=== PATIENT | female | born 1935 | race Hispanic/Latino ===

== ENCOUNTER 2016-12-28 10:28 | Outpatient (CLI) | payer MEDICARE ==
--- NOTE | 2016-12-28 12:57 | Mammography Report ---
Bilateral mammogram: Compared to 08/20/13. CAD study utilized. Findings: Predominance of adipose tissue bilaterally. Seroma left breast in the present study measures 1.35 cm compared to previous study measuring 2.1 cm. Increased scarring is identified adjacent to the seroma compared to previous study. There is new calcification noted adjacent to the seroma laterally seen on CC view and probably benign. Benign scattered calcifications are noted right breast. Impression: Seroma left breast appears smaller compared to previous study. Probably benign calcification adjacent to seroma. Six-month followup with left breast mammogram recommended. BI-RADS CATEGORY: 3 = Probably benign ACR BI-RADS MAMMOGRAPHIC CODES: 0 = Needs additional imaging evaluation; 1 = Negative; 2 = Benign; 3 = Probably benign; 4 = Suspicious; 5 = Malignant; 6 = Known biopsy-proven malignancy COMMENT: 1. Dense breast tissue, i.e., adenosis, fibrocystic changes, etc., may obscure an underlying neoplasm. 2. Approximately 10% of cancers are not detected with mammography. 3. A negative mammography report should not delay biopsy if a clinically suspicious mass is present. COMMENT: Patient follow-up letters are generated in [employer].
== END 2016-12-28 10:29 | disposition home or self-care (01) ==
LOC: SPVWC 10:28
PROVIDERS: ATTEND Family Medicine
DX: Z12.31 Encounter for screening mammogram for malignant neoplasm of breast (principal); I10 Essential (primary) hypertension
CPT/HCPCS: 77067; G0202

== ENCOUNTER 2016-12-31 14:25 | Outpatient (CLI) | payer MEDICARE ==
--- NOTE | 2016-12-31 16:58 | XRay Report ---
Lumbar spine series: Back pain. There is a grade 1 anterior L4 subluxation relative to L5. No spondylolyses is identified. The remaining bodies are well aligned in the lateral projection. There is rotational scoliosis to the left from L1-L3. There is normal vertebral height and the interspaces appear generally preserved. The apophyseal joints also appear generally preserved except for narrowing at L4-5. Impressions: The L4-5 findings are most likely degenerative. Rotational scoliosis. No acute finding suspected.
== END 2016-12-31 14:26 | disposition home or self-care (01) ==
LOC: XRAY 14:25
PROVIDERS: ATTEND Family Medicine
DX: M51.36 Other intervertebral disc degeneration, lumbar region (principal); M41.86 Other forms of scoliosis, lumbar region; I10 Essential (primary) hypertension; N12 Tubulo-interstitial nephritis, not specified as acute or chronic
CPT/HCPCS: 72110

== ENCOUNTER 2017-04-29 16:04 | Inpatient (IN) | payer MEDICARE ==
[2017-04-30 05:04] LABS: Basophils % (Auto) 0.4 % (0.0-1.8); Hematocrit 37.1 % (30.3-42.9); Hemoglobin 12.6 gm/dl (10.1-14.3); Mean Corpuscular HGB Conc 34 % (30-34); Mean Corpuscular Hemoglobin 31 pg (28-32); Mean Corpuscular Volume 92 fl (79-97); Platelet Count 142 K/mm3 (140-440); Red Blood Count 4.03 M/mm3 (3.65-5.03); Red Cell Distribution Width 13.7 % (13.2-15.2); White Blood Count 7.4 K/mm3 (4.5-11.0)
[2017-04-30 05:14] LABS: INR 0.99 (0.87-1.13); Partial Thromboplastin Time 26.5 Sec. (24.2-36.6)
[2017-04-30 05:15] LABS: Calcium 9.6 mg/dL (8.4-10.2); Chloride 102.8 mmol/L (98-107); Potassium 4.5 mmol/L (3.6-5.0)
[2017-04-30 05:31] LABS: Creatine Kinase 89 units/L (30-135); Creatine Kinase MB 1.8 ng/mL (0.0-4.0)
--- NOTE | 2017-04-30 06:51 | Emergency Department Report ---
ED Chest Pain HPI - General Chief Complaint: Chest Pain Stated Complaint: LEFT SIDE CHEST PAIN Time Seen by Provider: 04/30/17 06:50 Source: patient Mode of arrival: Ambulatory Limitations: No Limitations - History of Present Illness Initial Comments: Patient reports some chronic breast pain. She states that she is having to get another biopsy. She's had calcified lesion she states and previous excisional biopsies. She tells me that she is "now cancer free". She doesn't complain of shortness of breath cough or pleuritic pain. She has no leg pain or swelling. She states the pain is not related to movement. She states that many years ago she may have had a cardiac catheterization but that is so long ago she can't tell me when other than about 20 years. She takes was done at this facility in fact. She's not had a subsequent admission to the hospital for chest pain. MD Complaint: chest pain -: days(s) Onset: during rest Pain Location: left chest Pain Radiation: none Severity: moderate Severity scale (0 -10): 5 Quality: dull Consistency: intermittent Improves With: nothing Worsens With: nothing re: denies: nausea, vomting, diaphoresis, dyspnea, sense of impending doom Other Symptoms: denies: cough, fever, syncope Treatments Prior to Arrival: none Aspirin use within the Past 7 Days: (0) No - Related Data Home Medications Medication Instructions Recorded Confirmed Last Taken Levothyroxine [Synthroid] 100 mcg PO QAM 01/13/15 04/30/17 Unknown Metoprolol [Lopressor TAB] 50 mg PO DAILY 01/13/15 04/30/17 Unknown Simvastatin [Zocor TAB] 40 mg PO QHS 01/13/15 04/30/17 Unknown Benicar HCT 40-25 mg 1 tab PO DAILY 04/30/17 04/30/17 Unknown Myrbetriq 100 mg PO DAILY 04/30/17 04/30/17 Unknown Previous Rx's Medication Instructions Recorded Last Taken Type Gabapentin [Neurontin] 100 mg PO TID #90 capsule 01/16/15 Unknown Rx Janumet 50-500 mg Tablet 50 - 500 mg PO BID #60 01/16/15 Unknown Rx hydrALAZINE [Apresoline TAB] 50 mg PO Q8HR #90 tablet 01/16/15 Unknown Rx Allergies Allergy/AdvReac Type Severity Reaction Status Date / Time amlodipine besylate AdvReac Unknown Verified 09/11/13 20:02 [From [facility]] codeine AdvReac Unknown Verified 09/11/13 20:02 Thiazides AdvReac Unknown Verified 09/11/13 20:02 Heart Score - HEART Score History: Slightly suspicious EKG: Non-specific Age: > 65 Risk factors: > 3 risk factors or hx of atherosclerotic disease Troponin: < normal limit HEART Score: 5 - Critical Actions Critical Actions: 4-6 pts:12-16.6% risk of adverse cardiac event. Should be admitted ED Review of Systems ROS: Stated complaint: LEFT SIDE CHEST PAIN Other details as noted in HPI Constitutional: denies: chills, fever Eyes: denies: eye pain, eye discharge, vision change ENT: denies: ear pain, throat pain Respiratory: denies: cough, shortness of breath, wheezing Cardiovascular: chest pain. denies: palpitations Endocrine: no symptoms reported Gastrointestinal: denies: abdominal pain, nausea, diarrhea Genitourinary: denies: urgency, dysuria, discharge Musculoskeletal: denies: back pain, joint swelling, arthralgia Skin: denies: rash, lesions Neurological: denies: headache, weakness, paresthesias Psychiatric: denies: anxiety, depression Hematological/Lymphatic: denies: easy bleeding, easy bruising ED Past Medical Hx - Past Medical History Previous Medical History?: Yes Hx Hypertension: Yes Hx Diabetes: Yes Additional medical history: Hypothyroid. High Cholesterol - Surgical History Past Surgical History?: Yes Hx Cholecystectomy: Yes Hx Appendectomy: Yes Hx Breast Surgery: Yes (Left Lumpetctomy w/ lumph removal) Additional Surgical History: Hysterectomy - Social History Smoking Status: Never Smoker - Medications Home Medications: Home Medications Medication Instructions Recorded Confirmed Last Taken Type Levothyroxine [Synthroid] 100 mcg PO QAM 01/13/15 04/30/17 Unknown History Metoprolol [Lopressor TAB] 50 mg PO DAILY 01/13/15 04/30/17 Unknown History Simvastatin [Zocor TAB] 40 mg PO QHS 01/13/15 04/30/17 Unknown History Gabapentin [Neurontin] 100 mg PO TID #90 capsule 01/16/15 04/30/17 Unknown Rx Janumet 50-500 mg Tablet 50 - 500 mg PO BID #60 01/16/15 04/30/17 Unknown Rx hydrALAZINE [Apresoline TAB] 50 mg PO Q8HR #90 tablet 01/16/15 04/30/17 Unknown Rx Benicar HCT 40-25 mg 1 tab PO DAILY 04/30/17 04/30/17 Unknown History Myrbetriq 100 mg PO DAILY 04/30/17 04/30/17 Unknown History ED Physical Exam - General Limitations: No Limitations General appearance: alert, in no apparent distress - Head Head exam: Present: atraumatic, normocephalic - Eye Eye exam: Present: normal appearance. Absent: scleral icterus - ENT ENT exam: Present: mucous membranes moist - Neck Neck exam: Present: normal inspection - Respiratory Respiratory exam: Present: normal lung sounds bilaterally. Absent: respiratory distress - Cardiovascular Cardiovascular Exam: Present: regular rate, normal rhythm. Absent: systolic murmur, diastolic murmur, rubs, gallop - GI/Abdominal GI/Abdominal exam: Present: soft, normal bowel sounds. Absent: distended, tenderness, guarding, rebound - Extremities Exam Extremities exam: Present: normal inspection, full ROM, normal capillary refill. Absent: pedal edema, joint swelling, calf tenderness - Back Exam Back exam: Present: normal inspection - Neurological Exam Neurological exam: Present: alert, oriented X3, CN II-XII intact. Absent: motor sensory deficit - Psychiatric Psychiatric exam: Present: normal affect, normal mood - Skin Skin exam: Present: warm, dry, intact, normal color. Absent: rash ED Course Vital Signs 04/29/17 04/30/17 04/30/17 16:12 03:31 04:47 Temperature 98.5 F 97.8 F 97.8 F Pulse Rate 58 L 62 61 Respiratory 16 18 20 Rate Blood Pressure 183/76 203/83 Blood Pressure 199/86 [Right] O2 Sat by Pulse 97 98 99 Oximetry 04/30/17 04/30/17 04/30/17 05:00 05:59 07:30 Temperature Pulse Rate 69 74 Respiratory 20 20 16 Rate Blood Pressure Blood Pressure 173/70 182/74 [Right] O2 Sat by Pulse 99 99 98 Oximetry 04/30/17 04/30/17 04/30/17 08:50 09:50 10:30 Temperature Pulse Rate 71 Respiratory 16 16 16 Rate Blood Pressure Blood Pressure 187/78 [Right] O2 Sat by Pulse 98 Oximetry - Reevaluation(s) Reevaluation #1: Patient remained clinically stable. She was admitted by Romeo to the hospitalist service 04/30/17 14:13 ARIN score - Rain Score Age > 65: (1) Yes Aspirin use within the Past 7 Days: (0) No 3 or more CAD Risk Factors: (1) Yes 2 or more Angina events in past 24 hrs: (0) No Known CAD with more than 50% Stenosis: (0) No Elevated Cardiac Markers: (0) No ST Deviation Greater than 0.5mm: (0) No ARIN Score: 2 ED Medical Decision Making - Lab Data Result diagrams: 04/30/17 04:45 04/30/17 04:45 Laboratory Results - last 24 hr 04/30/17 04/30/17 04/30/17 04:45 04:45 04:45 WBC 7.4 RBC 4.03 Hgb 12.6 Hct 37.1 MCV 92 MCH 31 MCHC 34 RDW 13.7 Plt Count 142 Lymph % (Auto) 41.8 H [place] % (Auto) 10.3 H Eos % (Auto) 2.0 Baso % (Auto) 0.4 Lymph # 3.1 [place] # 0.8 Eos # 0.1 Baso # 0.0 Seg Neutrophils % 45.5 Seg Neutrophils # 3.3 PT 13.6 INR 0.99 APTT 26.5 Sodium 143 Potassium 4.5 Chloride 102.8 Carbon Dioxide 27 Anion Gap 18 BUN 18 H Creatinine 0.9 Estimated GFR 60 BUN/Creatinine Ratio 20 Glucose 107 H Calcium 9.6 Total Creatine Kinase CK-MB (CK-2) CK-MB (CK-2) Rel Index Troponin T 04/30/17 04:45 WBC RBC Hgb Hct MCV MCH MCHC RDW Plt Count Lymph % (Auto) [place] % (Auto) Eos % (Auto) Baso % (Auto) Lymph # [place] # Eos # Baso # Seg Neutrophils % Seg Neutrophils # PT INR APTT Sodium Potassium Chloride Carbon Dioxide Anion Gap BUN Creatinine Estimated GFR BUN/Creatinine Ratio Glucose Calcium Total Creatine Kinase 89 CK-MB (CK-2) 1.8 CK-MB (CK-2) Rel Index 2.0 Troponin T < 0.010 - EKG Data -: EKG Interpreted by Sd EKG shows normal: sinus rhythm, axis, intervals, QRS complexes, ST-T waves Rate: normal - EKG Data Interpretation: no acute changes - Radiology Data interpreted by me: Chest x-ray shows no acute finding Critical care attestation.: If time is entered above; I have spent that time in minutes in the direct care of this critically ill patient, excluding procedure time. ED Disposition Clinical Impression: Breast pain, Essential hypertension Chest pain Qualifiers: Chest pain type: unspecified Qualified Code(s): R07.9 - Chest pain, unspecified Disposition: OP ADMIT IP TO THIS HOSP Is pt being admited?: Yes Does the pt Need Aspirin: Yes Condition: Stable Time of Disposition: 14:14
--- NOTE | 2017-04-30 07:29 | XRay Report ---
AP CHEST: HISTORY: Cough, chest pain AP view of the chest demonstrates a normal mediastinal and cardiac contour with clear lungs and normal bony and soft tissue structures. IMPRESSION: Unremarkable AP chest. No significant change since 01/12/15.
[2017-04-30] MEDS ORDERED: ASPIRIN PO ONE (07:32)
[2017-04-30] MEDS ORDERED: NITRO-BID 2% TP ONE (07:32)
[2017-04-30] MEDS ORDERED: ULTRAM PO ONE (07:33)
[2017-04-30] MEDS ORDERED: MORPHINE IV PRN (08:48)
[2017-04-30] MEDS ORDERED: TYLENOL PO PRN (08:48)
[2017-04-30] MEDS ORDERED: ZOFRAN IM PRN (08:49)
--- NOTE | 2017-04-30 08:51 | History and Physical Report ---
History of Present Illness Date of examination: 04/30/17 Date of admission: 04/30/2017 Chief complaint: Chest pain History of present illness: Patient is a 82 years old female with a past medical history of hypertension, nonobstructive CAD, hypothyroidism, diabetes mellitus, breast CA s/p chemo and radiation, who presents to emergency department with chief complaint of chest pain. She states that the pain began few days ago intermittent left side chest pain. The pain was located over to substerna area .Patient described the pain as , something sizzling her chest and tightness; non-radiating.There is no aggravating; was relieved when she took ASA. The painful episodes did not increase in intensity or severity during this time. Patient denies chest pain at present time. She denies nausea, vomiting during these episodes of pain. Patient reported shortness of breath,diaphoresis including feeling lightheadedness and dizziness. She states she had tingling in her left arm. She continued to have several episodes of the pain throughout the night and got worried and drove to the Emergency Department. Patient she has been to the emergency department few times this year for chest pain but she was told was from calcium deposit. Past History Past Medical History: CAD, diabetes, hypertension, hypothyroidism, other ( breast CA s/p chemo and radiation) Past Surgical History: Other (breast) Social history: denies: smoking, alcohol abuse Family history: CAD, hypertension Medications and Allergies Allergies Allergy/AdvReac Type Severity Reaction Status Date / Time amlodipine besylate AdvReac Unknown Verified 09/11/13 20:02 [From [facility]] codeine AdvReac Unknown Verified 09/11/13 20:02 Thiazides AdvReac Unknown Verified 09/11/13 20:02 Home Medications Medication Instructions Recorded Confirmed Last Taken Type Levothyroxine [Synthroid] 100 mcg PO QAM 01/13/15 04/30/17 Unknown History Metoprolol [Lopressor TAB] 50 mg PO DAILY 01/13/15 04/30/17 Unknown History Simvastatin [Zocor TAB] 40 mg PO QHS 01/13/15 04/30/17 Unknown History Gabapentin [Neurontin] 100 mg PO TID #90 capsule 01/16/15 04/30/17 Unknown Rx Janumet 50-500 mg Tablet 50 - 500 mg PO BID #60 01/16/15 04/30/17 Unknown Rx hydrALAZINE [Apresoline TAB] 50 mg PO Q8HR #90 tablet 01/16/15 04/30/17 Unknown Rx Benicar HCT 40-25 mg 1 tab PO DAILY 04/30/17 04/30/17 Unknown History Myrbetriq 100 mg PO DAILY 04/30/17 04/30/17 Unknown History Active Meds: Active Medications Acetaminophen (Tylenol) 650 mg PO Q4H PRN PRN Reason: Pain MILD(1-3)/Fever >100.5/RAMIREZ Bisacodyl (Dulcolax) 10 mg CO QDAY PRN PRN Reason: Constipation unrelieved by MOM Enoxaparin Sodium (Lovenox) 40 mg SUB-Q QDAY [facility] Gabapentin (Neurontin) 100 mg PO TID [facility] Hydralazine HCl (Apresoline) 50 mg PO Q8HR [facility] Levothyroxine Sodium (Synthroid) 100 mcg PO QAM [facility] Metoprolol Tartrate (Lopressor) 50 mg PO DAILY [facility] Miscellaneous Medication (Benicar Hct 40-25 Mg) 1 tab PO DAILY [facility] Miscellaneous Medication (Myrbetriq) 100 mg PO DAILY [facility] Morphine Sulfate (Morphine) 2 mg IV Q4H PRN PRN Reason: Pain, Moderate (4-6) Ondansetron HCl (Zofran) 4 mg IM Q4H PRN PRN Reason: Nausea And Vomiting Simvastatin (Zocor) 40 mg PO QHS [facility] Review of Systems Constitutional: no weight gain, no fever, no chills Ears, nose, mouth and throat: no ear discharge, no tinnitis, no decreased hearing, no nose pain, no nasal congestion Breasts: no change in shape, no swelling Cardiovascular: chest pain, lightheadedness, no orthopnea, no palpitations, no rapid/irregular heart beat, no shortness of breath, no dyspnea on exertion Respiratory: no cough with sputum, no excessive sputum, no hemoptysis, no shortness of breath Gastrointestinal: no diarrhea, no constipation, no change in bowel habits Genitourinary Female: no dysmenorrhea, no pelvic pain, no menorrhagia Rectal: no incontinence Musculoskeletal: no neck stiffness, no shooting arm pain, no arm numbness/ tingling, no low back pain Integumentary: no pruritis, no redness, no sores, no wounds Neurological: no parathesias, no numbness, no tingling, no seizures Psychiatric: no change in sleep habits, no sleep disturbances, no insomnia, no hypersomnia, no change in appetite Endocrine: no excessive thirst, no polydipsia, no nocturia Hematologic/Lymphatic: no easy bruising, no easy bleeding Allergic/Immunologic: no urticaria, no allergic rhinitis Exam - Constitutional Vitals: Temp Pulse Resp BP Pulse Ox 97.8 F 69 20 173/70 99 04/30/17 04:47 04/30/17 05:59 04/30/17 05:59 04/30/17 05:59 04/30/17 05:59 General appearance: Present: no acute distress - EENT Eyes: Present: PERRL ENT: hearing intact - Neck Neck: Present: supple - Respiratory Respiratory effort: normal Respiratory: bilateral: CTA - Cardiovascular Rhythm: regular Heart Sounds: Present: S1 & S2 - Abdominal General gastrointestinal: Present: soft, non-tender - Rectal Rectal Exam: deferred - Integumentary Integumentary: Present: clear, warm, dry - Musculoskeletal Musculoskeletal: strength equal bilaterally - Psychiatric Psychiatric: appropriate mood/affect - Neurologic Neurologic: CNII-XII intact - Allied Health Allied health notes reviewed: nursing Results - Labs CBC & Chem 7: 04/30/17 04:45 04/30/17 04:45 Labs: Laboratory Last Values WBC 7.4 K/mm3 (4.5-11.0) 04/30/17 04:45 RBC 4.03 M/mm3 (3.65-5.03) 04/30/17 04:45 Hgb 12.6 gm/dl (10.1-14.3) 04/30/17 04:45 Hct 37.1 % (30.3-42.9) 04/30/17 04:45 MCV 92 fl (79-97) 04/30/17 04:45 MCH 31 pg (28-32) 04/30/17 04:45 MCHC 34 % (30-34) 04/30/17 04:45 RDW 13.7 % (13.2-15.2) 04/30/17 04:45 Plt Count 142 K/mm3 (140-440) 04/30/17 04:45 Lymph % (Auto) 41.8 % (13.4-35.0) H 04/30/17 04:45 [place] % (Auto) 10.3 % (0.0-7.3) H 04/30/17 04:45 Eos % (Auto) 2.0 % (0.0-4.3) 04/30/17 04:45 Baso % (Auto) 0.4 % (0.0-1.8) 04/30/17 04:45 Lymph # 3.1 K/mm3 (1.2-5.4) 04/30/17 04:45 [place]ha # 0.8 K/mm3 (0.0-0.8) 04/30/17 04:45 Eos # 0.1 K/mm3 (0.0-0.4) 04/30/17 04:45 Baso # 0.0 K/mm3 (0.0-0.1) 04/30/17 04:45 Seg Neutrophils % 45.5 % (40.0-70.0) 04/30/17 04:45 Seg Neutrophils # 3.3 K/mm3 (1.8-7.7) 04/30/17 04:45 PT 13.6 Sec. (12.2-14.9) 04/30/17 04:45 INR 0.99 (0.87-1.13) 04/30/17 04:45 APTT 26.5 Sec. (24.2-36.6) 04/30/17 04:45 Sodium 143 mmol/L (137-145) 04/30/17 04:45 Potassium 4.5 mmol/L (3.6-5.0) 04/30/17 04:45 Chloride 102.8 mmol/L (98-107) 04/30/17 04:45 Carbon Dioxide 27 mmol/L (22-30) 04/30/17 04:45 Anion Gap 18 mmol/L 04/30/17 04:45 BUN 18 mg/dL (7-17) H 04/30/17 04:45 Creatinine 0.9 mg/dL (0.7-1.2) 04/30/17 04:45 Estimated GFR 60 ml/min 04/30/17 04:45 BUN/Creatinine Ratio 20 % 04/30/17 04:45 Glucose 107 mg/dL (65-100) H 04/30/17 04:45 Calcium 9.6 mg/dL (8.4-10.2) 04/30/17 04:45 Total Creatine Kinase 89 units/L (30-135) 04/30/17 04:45 CK-MB (CK-2) 1.8 ng/mL (0.0-4.0) 04/30/17 04:45 CK-MB (CK-2) Rel Index 2.0 (0-4) 04/30/17 04:45 Troponin T < 0.010 ng/mL (0.00-0.029) 04/30/17 04:45 - Imaging and Cardiology Chest x-ray: image reviewed (unremarkable ) Assessment and Plan Assessment and plan: Patient is a 82 years old female with a past medical history of hypertension, nonobstructive CAD, hypothyroidism, diabetes mellitus, breast CA s/p chemo and radiation, who presents to emergency department with chief complaint of chest pain. She states that the pain began few days ago intermittent left side chest pain. Chest Pain We will admit to telemetry floor. EKG normal sinus no ST elevation or T-wave inversion. Negative cardiac enzyme X1 Start on aspirin Nitroglycerin when necessary Morphine ordered for pain Stress test ordered Cardiology evaluation Diabetes mellitus Accu-Chek before meals and at bedtime Sliding scale insulin/NovoLog ADA carbohydrate consistent diet Hypertensive urgency Resume home antihypertensive medications IV hydralazine for SBP>160 Closely monitor blood pressure DVT Prophylaxis Lovenox Advance Directives: Yes VTE prophylaxis?: Chemical Contraindication Mechanical VTE Prophylaxis: Treatment Not Indicated Plan of care discussed with patient/family: Yes
[2017-04-30] MEDS ORDERED: D50W (25GM) Syringe IV PRN (09:42)
[2017-04-30] MEDS ORDERED: MIRABEGRON PO SCH (10:00)
[2017-04-30] MEDS ORDERED: LOPRESSOR PO SCH (10:00)
[2017-04-30] MEDS ORDERED: SYNTHROID PO SCH (10:00)
[2017-04-30] MEDS ORDERED: BENICAR HCT PO SCH (10:00)
[2017-04-30] MEDS ORDERED: DULCOLAX PR PRN (10:00)
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
[2017-04-30] MEDS: COZAAR PO SCH (10:40)
[2017-04-30] MEDS: HCTZ PO SCH (10:40)
[2017-04-30] MEDS: LOVENOX SUB-Q SCH (10:41)
[2017-04-30] MEDS ORDERED: LOVENOX SUB-Q ONE (11:12)
[2017-04-30] MEDS ORDERED: COZAAR ONE (11:12)
[2017-04-30] MEDS ORDERED: HCTZ ONE (11:12)
[2017-04-30] MEDS: NOVOLOG SUB-Q SCH ×2 (11:22→16:30)
[2017-04-30 12:36] LABS: Creatine Kinase MB 1.6 ng/mL (0.0-4.0)
[2017-04-30 12:38] LABS: Creatine Kinase 80 units/L (30-135)
[2017-04-30] MEDS ORDERED: APRESOLINE IV PRN (13:18)
[2017-04-30] MEDS: APRESOLINE PO SCH ×2 (18:12→21:51)
[2017-04-30] MEDS: NEURONTIN PO SCH ×2 (18:13→21:51)
[2017-04-30] MEDS: SYNTHROID PO SCH (18:16)
[2017-04-30] MEDS: LOPRESSOR PO SCH (21:51)
[2017-04-30] MEDS ORDERED: NOVOLOG SUB-Q SCH (22:00)
[2017-04-30] MEDS ORDERED: ZOCOR PO SCH (22:00)
[2017-05-01] MEDS: APRESOLINE PO SCH ×2 (05:20→13:44)
[2017-05-01] MEDS: SYNTHROID PO SCH (05:20)
[2017-05-01 07:51] LABS: Basophils % (Auto) 0.5 % (0.0-1.8); Eosinophils % (Auto) 1.7 % (0.0-4.3); Hematocrit 39.9 % (30.3-42.9); Hemoglobin 13.5 gm/dl (10.1-14.3); Mean Corpuscular HGB Conc 34 % (30-34); Mean Corpuscular Hemoglobin 32 pg (28-32); Mean Corpuscular Volume 94 fl (79-97); Platelet Count 210 K/mm3 (140-440); Red Blood Count 4.26 M/mm3 (3.65-5.03); Red Cell Distribution Width 13.6 % (13.2-15.2); White Blood Count 7.9 K/mm3 (4.5-11.0)
[2017-05-01 08:03] LABS: Calcium 9.4 mg/dL (8.4-10.2); Chloride 103.8 mmol/L (98-107); Potassium 3.8 mmol/L (3.6-5.0)
[2017-05-01] MEDS ORDERED: LEXISCAN IV ONE (09:00)
[2017-05-01] MEDS ORDERED: BABY ASPIRIN PO SCH (10:00)
--- NOTE | 2017-05-01 10:47 | Progress Note ---
Hospitalist Physical - Constitutional Vitals: Temp Pulse Resp BP Pulse Ox 97.7 F 95 H 18 191/78 96 05/01/17 04:01 05/01/17 08:44 05/01/17 04:01 05/01/17 08:44 05/01/17 04:01 General appearance: Present: no acute distress Results - Labs CBC & Chem 7: 05/01/17 07:04 05/01/17 07:04 Labs: Laboratory Last Values WBC 7.9 K/mm3 (4.5-11.0) 05/01/17 07:04 RBC 4.26 M/mm3 (3.65-5.03) 05/01/17 07:04 Hgb 13.5 gm/dl (10.1-14.3) 05/01/17 07:04 Hct 39.9 % (30.3-42.9) 05/01/17 07:04 MCV 94 fl (79-97) 05/01/17 07:04 MCH 32 pg (28-32) 05/01/17 07:04 MCHC 34 % (30-34) 05/01/17 07:04 RDW 13.6 % (13.2-15.2) 05/01/17 07:04 Plt Count 210 K/mm3 (140-440) 05/01/17 07:04 Lymph % (Auto) 41.4 % (13.4-35.0) H 05/01/17 07:04 [place] % (Auto) 10.7 % (0.0-7.3) H 05/01/17 07:04 Eos % (Auto) 1.7 % (0.0-4.3) 05/01/17 07:04 Baso % (Auto) 0.5 % (0.0-1.8) 05/01/17 07:04 Lymph # 3.3 K/mm3 (1.2-5.4) 05/01/17 07:04 [place] # 0.8 K/mm3 (0.0-0.8) 05/01/17 07:04 Eos # 0.1 K/mm3 (0.0-0.4) 05/01/17 07:04 Baso # 0.0 K/mm3 (0.0-0.1) 05/01/17 07:04 Seg Neutrophils % 45.7 % (40.0-70.0) 05/01/17 07:04 Seg Neutrophils # 3.6 K/mm3 (1.8-7.7) 05/01/17 07:04 PT 13.6 Sec. (12.2-14.9) 04/30/17 04:45 INR 0.99 (0.87-1.13) 04/30/17 04:45 APTT 26.5 Sec. (24.2-36.6) 04/30/17 04:45 Sodium 144 mmol/L (137-145) 05/01/17 07:04 Potassium 3.8 mmol/L (3.6-5.0) 05/01/17 07:04 Chloride 103.8 mmol/L (98-107) 05/01/17 07:04 Carbon Dioxide 27 mmol/L (22-30) 05/01/17 07:04 Anion Gap 17 mmol/L 05/01/17 07:04 BUN 19 mg/dL (7-17) H 05/01/17 07:04 Creatinine 0.9 mg/dL (0.7-1.2) 05/01/17 07:04 Estimated GFR 60 ml/min 05/01/17 07:04 BUN/Creatinine Ratio 21 % 05/01/17 07:04 Glucose 119 mg/dL (65-100) H 05/01/17 07:04 POC Glucose 127 (70-105) H 04/30/17 21:43 Calcium 9.4 mg/dL (8.4-10.2) 05/01/17 07:04 Total Creatine Kinase 80 units/L (30-135) 04/30/17 11:47 CK-MB (CK-2) 1.6 ng/mL (0.0-4.0) 04/30/17 11:47 CK-MB (CK-2) Rel Index 2.0 (0-4) 04/30/17 11:47 Troponin T < 0.010 ng/mL (0.00-0.029) 04/30/17 11:47 Triglycerides 160 mg/dL (2-149) H 05/01/17 07:04 Cholesterol 167 mg/dL (50-199) 05/01/17 07:04 LDL Cholesterol Direct 88 mg/dL (50-130) 05/01/17 07:04 HDL Cholesterol 47 mg/dL (40-59) 05/01/17 07:04 Cholesterol/HDL Ratio 3.55 % 05/01/17 07:04
[2017-05-01] MEDS: HCTZ PO SCH (11:31)
[2017-05-01] MEDS: COZAAR PO SCH (11:32)
[2017-05-01] MEDS: LOVENOX SUB-Q SCH (11:32)
[2017-05-01] MEDS: LOPRESSOR PO SCH (11:33)
[2017-05-01] MEDS: NEURONTIN PO SCH ×2 (11:35→17:06)
[2017-05-01] MEDS: NOVOLOG SUB-Q SCH ×2 (11:36→13:44)
--- NOTE | 2017-05-01 13:16 | Progress Note ---
Assessment and Plan Assessment: Chest pain, atypical - ECG with NAF; Brenden negative for AMI x 1 set. HTN urgency H/o breast CA, s/p chemo and radiation H/o hypothyroidism Plan: Echo reviewed - EF 60-65%, trace MR. s/p lexiscan MPI stress test this AM which was negative for ischemia, normal EF. Optimize blood pressure. Cont ASA 81, zocor, losartan, hydralazine. Increase lopressor. Following BP optimization, pt may discharge home from cardiology standpoint. Recommend follow up in our office with Gloria Mckenzie NP, within 1-2 weeks of hospital discharge ([phone]). Pt requesting U/S of breast tissue. Will defer to hospitalist. Assessment and plan reviewed with pt at bedside. The patient has been seen in conjunction with Dr. Krishnamurthy who agrees with the assessment and plan of care. Subjective Date of service: 05/01/17 Principal diagnosis: chest pain Interval history: pt for stress test Objective Last Vital Signs Temp 97.7 F 05/01/17 04:01 Pulse 95 H 05/01/17 11:33 Resp 18 05/01/17 04:01 BP 191/78 05/01/17 11:33 Pulse Ox 96 05/01/17 04:01 - Physical Examination General: Appears Well HEENT: Positive: PERRL, Normocephaly, Mucus Membranes Moist Neck: Positive: neck supple, trachea midline Cardiac: Positive: Reg Rate and Rhythm, S1/S2 Lungs: Positive: clear to auscultation Neuro: Positive: Grossly Intact Abdomen: Positive: Soft. Negative: Tender Skin: Positive: Clear. Negative: Rash, Wound Musculoskeletal: No Fluid Collection, No Pain, Normal Range of Motion Extremities: Absent: edema - Labs and Meds Lipids 05/01/17 Range/Units 07:04 Triglycerides 160 H (2-149) mg/dL Cholesterol 167 (50-199) mg/dL HDL Cholesterol 47 (40-59) mg/dL Cholesterol/HDL Ratio 3.55 % CBC 05/01/17 Range/Units 07:04 WBC 7.9 (4.5-11.0) K/mm3 RBC 4.26 (3.65-5.03) M/mm3 Hgb 13.5 (10.1-14.3) gm/dl Hct 39.9 (30.3-42.9) % Plt Count 210 (140-440) K/mm3 Lymph # 3.3 (1.2-5.4) K/mm3 [place] # 0.8 (0.0-0.8) K/mm3 Eos # 0.1 (0.0-0.4) K/mm3 Baso # 0.0 (0.0-0.1) K/mm3 Comprehensive Metabolic Panel 05/01/17 Range/Units 07:04 Sodium 144 (137-145) mmol/L Potassium 3.8 (3.6-5.0) mmol/L Chloride 103.8 (98-107) mmol/L Carbon Dioxide 27 (22-30) mmol/L BUN 19 H (7-17) mg/dL Creatinine 0.9 (0.7-1.2) mg/dL Glucose 119 H (65-100) mg/dL Calcium 9.4 (8.4-10.2) mg/dL - Imaging and Cardiology EKG: image reviewed Cardiac cath: report reviewed ([facility] in 11/2003 which showed proximal LAD after the first branch has a 30% stenosis; The mid LAD has a 40% stenosis; The lesion in the mid LAD is long; The right coronary artery has diffuse luminal irregularity. The right coronary artery is dominant; The ejection fraction is estimated at 60%. ) - Telemetry EKG Rhythm: Sinus Rhythm - EKG Sinus rhythms and dysrhythmias: sinus rhythm
[2017-05-01] MEDS ORDERED: LOPRESSOR PO SCH ×2 (13:22→22:00)
--- NOTE | 2017-05-01 13:33 | Discharge Summary ---
Addendum entered and electronically signed by JONATHAN WONG NP 05/01/17 15:02 : Time spent for discharge 33 minutes Original Note: Providers - Providers Date of Admission: 04/30/17 08:48 Date of discharge: 05/01/17 Attending physician: MARLEN TAVAREZ 04/30/17 08:54 Consult to Physician [CONS] Routine Consulting Provider: CHICHO THOMASON Reason For Exam: Chest pain Place consult to:: CARDIO Notified:: Y Was contact made?: Yes If yes, spoke with:: Elba PERRY Time called:: 09:00 Primary care physician: DRUM CARRIER Hospitalization Reason for admission: Chest pain Condition: Stable Hospital course: Patient is a 82 years old female with a past medical history of hypertension, nonobstructive CAD, hypothyroidism, diabetes mellitus, breast CA s/p chemo and radiation, who presents to emergency department with chief complaint of chest pain. She states that the pain began few days ago intermittent left side chest pain. The pain was located over to substerna area .Patient described the pain as , something sizzling her chest and tightness; non-radiating. Patient was diagnosed with chest pain, Diabetes mellitus and Hypertensive urgency. Patient presented with atypical chest pain, ACS was ruled out, stress test normal MPI, negative cardiac enzymes, ECGs shows normal sinus rythm, CXR. Patient chest pain probably from musculoskeletal. She was treated with IV fluid hydration and antihypertensive medications. Patient is clinically improved and stable for discharge. Patient advised to follow-up with her primary care provider. Discharge Diagnosed Chest Pain due to Costochondritis Diabetes mellitus Hypertensive urgency Disposition: DC- TO HOME OR SELFCARE Core Measure Documentation - Palliative Care Palliative Care/ Comfort Measures: Not Applicable - Core Measures Any of the following diagnoses?: none Exam - Constitutional Vitals: Temp Pulse Resp BP Pulse Ox 97.7 F 56 L 18 141/68 98 05/01/17 04:01 05/01/17 12:51 05/01/17 04:01 05/01/17 12:51 05/01/17 12:51 General appearance: Present: no acute distress - EENT Eyes: Present: PERRL ENT: hearing intact - Neck Neck: Present: supple - Respiratory Respiratory effort: normal Respiratory: bilateral: CTA - Cardiovascular Rhythm: regular Heart Sounds: Present: S1 & S2 - Abdominal General gastrointestinal: Present: soft, non-tender - Rectal Rectal Exam: deferred - Integumentary Integumentary: Present: clear, warm, dry - Musculoskeletal Musculoskeletal: strength equal bilaterally - Psychiatric Psychiatric: appropriate mood/affect - Neurologic Neurologic: CNII-XII intact - Allied Health Allied health notes reviewed: nursing Plan Activity: no restrictions Diet: low fat, low cholesterol, low salt, diabetic Follow up with: PRIMARY CARE, [Primary Care Provider] - 3-5 Days Prescriptions: Gabapentin [Neurontin] 100 mg PO TID #30 capsule hydrALAZINE [Apresoline TAB] 50 mg PO BID #30 tablet Hydrochlorothiazide [HCTZ] 25 mg PO QDAY #30 tablet Losartan [Cozaar] 100 mg PO QDAY #30 tablet Metoprolol [Lopressor TAB] 50 mg PO BID #30 tablet
[2017-05-01] MEDS ORDERED: Fluarix Quad 2017-2018(36 MOS+) IM ONE (17:22)
[2017-05-01 18:47] VITALS: BP 154/64
--- NOTE | 2017-05-01 22:53 | Treadmill Report ---
NUCLEAR PERFUSION SCAN DATE OF SERVICE: 05/01/2017 REFERRING PHYSICIAN: Dr. Krishnamurthy PROTOCOL: The patient was brought to the stress lab in a post-absorptive state, given 10 mCi of technetium 99m at rest. The patient underwent rest imaging. The patient underwent Lexiscan stress test appropriate per standard protocol. At peak stress, the patient was given 26 mCi of technetium 99m. Shortly thereafter, the patient underwent stress imaging. Raw imaging reveals mild GI artifact. No significant motion artifact. SPECT imaging examined carefully in the horizontal long axis, vertical long axis, and short axis views. There is normal homogenous uptake of radioisotope in all reported segments. No evidence of a significant fixed or reversible perfusion defects suggestive of prior infarction or ischemia. Gated wall motion reveals normal systolic thickening, calculated ejection fraction of 74%. No TID. CONCLUSIONS: 1. Normal myocardial perfusion scan without evidence of active ischemia or prior infarction. 2. Normal left ventricular systolic performance without evidence of transient ischemic dilatation or stress-induced segmental wall motion abnormalities. JOB# [id number] SBCosme/CAMILO
== END 2017-05-01 19:20 | disposition home or self-care (01) | DRG 206 ==
LOC: ED 16:04 → 4A 04-30 08:48
PROVIDERS: ADMIT Internal Medicine; ATTEND Internal Medicine
PROC: 3E0234Z Introduction of Serum, Toxoid and Vaccine into Muscle, Percutaneous Approach (ICD-10-PCS; principal; 2017-05-01)
DX: M94.0 Chondrocostal junction syndrome [Tietze] (principal); I16.0 Hypertensive urgency; E11.9 Type 2 diabetes mellitus without complications; E03.9 Hypothyroidism, unspecified; I25.10 Atherosclerotic heart disease of native coronary artery without angina pectoris; Z79.84 Long term (current) use of oral hypoglycemic drugs; Z23 Encounter for immunization
CPT/HCPCS: 36415; 71010; 78452; 80048; 80061; 82550; 82553; 82962; 84484; 85025; 85610; 85730; 90686; 93005; 93010; 93017; 93306; A9502; J1650; J2785

== ENCOUNTER 2017-09-30 15:38 | Outpatient (CLI) | payer MEDICARE ==
--- NOTE | 2017-10-02 09:26 | Mammography Report ---
BILATERAL DIGITAL SCREENING MAMMOGRAM with CAD : 09/30/17 15:38:00 CLINICAL: Routine screening.Breast cancer survivor status post left partial mastectomy in 2008. COMPARISON:12/28/16 FINDINGS: The breasts are heterogeneously dense, which may obscure small masses.Left breast is smaller than the right with stable heavily calcified benign scar. Scattered bilateral benign calcifications. No mass, architectural distortion or suspicious calcifications. IMPRESSION: No mammographic evidence of malignancy. BI-RADS CATEGORY: 2 -- Benign RECOMMENDATION: Routine mammographic screening in one year. COMMENT: Patient follow-up letters are generated by our [employer] application.
== END 2017-09-30 15:39 | disposition home or self-care (01) ==
LOC: SPVWC 15:38
PROVIDERS: ATTEND Family Medicine
DX: Z12.31 Encounter for screening mammogram for malignant neoplasm of breast (principal); I10 Essential (primary) hypertension; E03.9 Hypothyroidism, unspecified; E78.00 Pure hypercholesterolemia, unspecified; Z90.12 Acquired absence of left breast and nipple
CPT/HCPCS: 77067